=== PATIENT | male | born 1990 | race Caucasian/White ===

== ENCOUNTER 2019-08-19 16:32 | Inpatient (IN) | payer MEDICAID, OTHER ==
[~2019-08-19] VITALS: Ht 160 cm; Wt 87.3 kg
[2019-08-19] MEDS ORDERED: DOXE25 PO (16:40)
[2019-08-19] MEDS ORDERED: ALBU8HFA IH (16:40)
[2019-08-19] MEDS ORDERED: OMEP20 PO (16:40)
[2019-08-19] MEDS ORDERED: LAMO25TA25 PO (16:40)
[2019-08-19] MEDS ORDERED: FLUV50 PO (16:40)
[2019-08-19] MEDS ORDERED: HALOPERIDOL 5 MG TABLET PO ONE (17:00)
[2019-08-19] MEDS ORDERED: LORazepam 1 MG TABLET PO ONE (17:00)
[2019-08-19] MEDS ORDERED: PROMETHAZINE HCL 25 MG TABLET PO PRN (18:00)
[2019-08-19] MEDS ORDERED: TUBERCULIN, PURIFIED PROTEIN DERIVATIVE 5 TU/0.1 ML SYRINGE ID ONE (18:00)
[2019-08-19] MEDS ORDERED: LORazepam 2 MG TABLET PO PRN (18:00)
[2019-08-19] MEDS ORDERED: OLANZapine 5 MG RAPDIS TABLET PO PRN (18:00)
[2019-08-19] MEDS ORDERED: MAGNESIUM HYDROXIDE SUSPENSION 30 ML UDCUP PO PRN (18:00)
[2019-08-19] MEDS ORDERED: GuaiFENesin/D-METHORPHAN [SUGAR-FREE] 200-20MG/10 ML SYRUP UDCUP PO PRN (18:00)
[2019-08-19] MEDS ORDERED: ZOLPIDEM TARTRATE 10 MG TABLET PO PRN (18:00)
[2019-08-19] MEDS ORDERED: MAG HYDROX/AL HYDROX/SIMETH ES 30 ML SUSPENSION UDCUP PO PRN (18:00)
[2019-08-19] MEDS ORDERED: ACETAMINOPHEN 325 MG TABLET PO PRN (18:00)
[2019-08-19] MEDS ORDERED: LOPERAMIDE HCL 2 MG CAPSULE PO PRN (18:00)
[2019-08-19] MEDS ORDERED: HydrOXYzine PAMOATE 50 MG CAPSULE PO PRN (18:00)
[2019-08-19] MEDS ORDERED: HALOPERIDOL LACTATE 5 MG/ML VIAL IM ONE (18:45)
[2019-08-19] MEDS ORDERED: DiphenhydrAMINE HCL 50 MG/ML VIAL IM ONE (18:45)
[2019-08-19] MEDS ORDERED: LORazepam 2 MG/ML VIAL IM ONE (18:45)
[2019-08-19] MEDS ORDERED: PNEUMOCOCCAL VACCINE POLYVALENT 0.5 ML VIAL [PPSV23] IM ONE (20:45)
[2019-08-19] MEDS: THIAMINE 100 MG TABLET PO SCH (21:39)
[2019-08-19] MEDS: OLANZapine 5 MG RAPDIS TABLET PO SCH (21:39)
[2019-08-19] MEDS: DIVALPROEX SODIUM 250 MG ER TABLET PO SCH (21:39)
[2019-08-20 01:25] VITALS: BP 144/85
[2019-08-20 08:03] LABS: HEMOGLOBIN A1C 4.9 % (3.8-5.6)
[2019-08-20 08:14] LABS: CHOL/HDL RATIO 3.6 (4.2-7.3); FREE T4 (FREE THYROXINE) 1.55 ng/dL (0.76-1.46); THYROID STIMULATING HORMONE 1.7 uIU/mL (0.36-3.74)
[2019-08-20] MEDS: FOLIC ACID 1 MG TABLET PO SCH (09:58)
[2019-08-20] MEDS: THIAMINE 100 MG TABLET PO SCH ×2 (09:58→20:55)
[2019-08-20] MEDS: MULTIVITAMINS WITH MINERALS, THERAPEUTIC TABLET PO SCH (09:58)
[2019-08-20 16:09] VITALS: BP 134/77
[2019-08-20] MEDS: SODIUM CHLORIDE 0.65% 44 ML NASAL SPRAY NASAL SCH (20:55)
[2019-08-20] MEDS: OLANZapine 5 MG RAPDIS TABLET PO SCH (20:56)
[2019-08-20] MEDS: DIVALPROEX SODIUM 250 MG ER TABLET PO SCH (20:56)
[2019-08-21] MEDS: THIAMINE 100 MG TABLET PO SCH ×2 (09:01→17:45)
[2019-08-21] MEDS: FOLIC ACID 1 MG TABLET PO SCH (09:01)
[2019-08-21] MEDS: MULTIVITAMINS WITH MINERALS, THERAPEUTIC TABLET PO SCH (09:01)
[2019-08-21] MEDS: SODIUM CHLORIDE 0.65% 44 ML NASAL SPRAY NASAL SCH ×2 (09:04→17:44)
[2019-08-21 16:25] VITALS: BP 136/82
[2019-08-21] MEDS ORDERED: OLAN5TAB30 PO (19:21)
[2019-08-21] MEDS ORDERED: DIVA250T45 PO (19:21)
[2019-08-21 20:27] VITALS: BP 129/81
[2019-08-21] MEDS: DIVALPROEX SODIUM 250 MG ER TABLET PO SCH (20:27)
[2019-08-21] MEDS ORDERED: OLANZapine 10 MG RAPDIS TABLET PO SCH (21:00)
[2019-08-22 02:55] VITALS: BP 137/88
[2019-08-22 08:07] VITALS: BP 129/80
[2019-08-22] MEDS: SODIUM CHLORIDE 0.65% 44 ML NASAL SPRAY NASAL SCH (10:18)
[2019-08-22] MEDS: THIAMINE 100 MG TABLET PO SCH (10:18)
[2019-08-22] MEDS: MULTIVITAMINS WITH MINERALS, THERAPEUTIC TABLET PO SCH (10:18)
[2019-08-22] MEDS: FOLIC ACID 1 MG TABLET PO SCH (10:18)
[2019-08-22] MEDS ORDERED: SODI44SP18 NASAL (11:04)
[2019-08-22] MEDS ORDERED: NALT50TA PO (12:16)
== END 2019-08-22 14:45 | disposition home or self-care (01) | DRG 885 ==
LOC: EMS 16:38 → 3EC 17:46
PROVIDERS: ADMIT Psychiatry & Neurology Child & Adolescent Psychiatry; ATTEND Psychiatry & Neurology Psychiatry
DX: F25.9 Schizoaffective disorder, unspecified (principal); Q87.2 Congenital malformation syndromes predominantly involving limbs; K21.9 Gastro-esophageal reflux disease without esophagitis; J45.909 Unspecified asthma, uncomplicated; R62.50 Unspecified lack of expected normal physiological development in childhood; Z88.1 Allergy status to other antibiotic agents; Z88.8 Allergy status to other drugs, medicaments and biological substances; Z91.19 Patient's noncompliance with other medical treatment and regimen; Q89.9 Congenital malformation, unspecified
CPT/HCPCS: 83036; 84439; 84443; 86592; J1200; J1630; J2060